=== PATIENT | female | born 1995 | race Caucasian/White ===

== ENCOUNTER 2021-02-27 22:53 | Inpatient (IN) | payer MEDICAID ==
[~2021-02-27] VITALS: Ht 157.5 cm; Wt 105.8 kg
[~2021-02-27 22:53] MED LIST: ALPR-624 PO; CARI350T PO; HYDR-4383 PO; HYDR-569 PO; IBUP-1985 PO; LORA1TAB PO; MECL12.5 PO; NALO4SPR BOTHNARES; SERT-153 PO
[2021-02-27] MEDS ORDERED: normal saline 1000ML IV soln IVB ONE (23:05)
[2021-02-27] MEDS ORDERED: naloxone 2mg/2ml inj IV ONE (23:05)
[2021-02-27] MEDS ORDERED: naloxone 2mg/2ml inj ONE (23:19)
[2021-02-27 23:34] LABS: BASOPHILS # (AUTO) 0.1 X10'3 (0-0.2); BASOPHILS % (AUTO) 0.8 % (0-1); EOSINOPHILS # (AUTO) 0.2 X10'3 (0-0.9); EOSINOPHILS % (AUTO) 2.2 % (0-6); HEMATOCRIT 35.6 % (35.0-45.0); HEMOGLOBIN 11.6 g/dl (12.0-16.0); LYMPHOCYTES # (AUTO) 3.1 X10'3 (1.1-4.8); LYMPHOCYTES % (AUTO) 37.7 % (21-51); MEAN CORPUSCULAR HEMOGLOBIN 27.8 PG (27.0-31.0); MEAN CORPUSCULAR HGB CONC 32.7 g/dL (33.0-36.5); MEAN CORPUSCULAR VOLUME 85.2 FL (78-98); MEAN PLATELET VOLUME 7.8 FL (7.4-10.4); MONOCYTES # (AUTO) 0.7 X10'3 (0-0.9); MONOCYTES % (AUTO) 8.3 % (2-12); NEUTROPHILS # (AUTO) 4.2 X10'3 (1.8-7.7); PLATELET COUNT 323 X10'3 (140-440); RED BLOOD COUNT 4.18 X10'6 (4.20-5.60); RED CELL DISTRIBUTION WIDTH 15.5 % (11.5-14.5); WHITE BLOOD COUNT 8.2 X10'3 (4.5-11.0)
[2021-02-27 23:56] LABS: ALANINE AMINOTRANSFERASE 14 U/L (12-78); ALBUMIN 3.1 G/DL (3.4-5.0); ALBUMIN/GLOBULIN RATIO 0.8 (1.1-1.5); ASPARTATE AMINO TRANSFERASE 13 U/L (10-37); BILIRUBIN,TOTAL 0.2 MG/DL (0.1-1.0); BLOOD UREA NITROGEN 13 MG/DL (7-18); BUN/CREATININE RATIO 17.3 (6.6-38.0); CALCIUM 8.3 MG/DL (8.5-10.1); CREATININE 0.75 MG/DL (0.40-0.90); ETHANOL < 0.010 GM/DL (0.0-0.010); GLUCOSE 86 MG/DL (70-104); TOTAL CARBON DIOXIDE 25.6 MMOL/L (24-32); TOTAL PROTEIN 7.2 G/DL (6.4-8.2); TROPONIN I < 0.04 NG/ML (0.0-0.05); eGFR > 90 ML/MIN
[2021-02-27 23:57] LABS: ANION GAP 8 (8-16); CHLORIDE 106 MMOL/L (99-107); POTASSIUM 4.2 MMOL/L (3.5-5.1); SODIUM 140 MMOL/L (135-145)
[2021-02-28] VITALS (14 sets, daily range): BP systolic 138–161; BP diastolic 93–113
[2021-02-28 00:02] LABS: ALKALINE PHOSPHATASE 47 IU/L (46-116)
--- NOTE | 2021-02-28 00:55 | NUR ---
REPORT TO BREAK NURSE, PT SLEEPING, RR EVEN, NON-LABORED, ON 3 LPM N/C, ALERT TO PAIN, RESPONDS WITH 2-3 WORD SENTENCES BEFORE FALLING BACK TO SLEEP, PUPILS REMAIN PINPOINT.
--- NOTE | 2021-02-28 01:00 | NUR ---
First interaction with pt. as a break nurse Pt sleeping, 96% 3L O2. Iv placed with fluid infusing.
[2021-02-28] MEDS ORDERED: naloxone 2mg/2ml inj IV STA (01:19)
--- NOTE | 2021-02-28 01:30 | NUR ---
Nalaxone given 4mg per Md order. Report given to primary RN Leanne continue care.
--- NOTE | 2021-02-28 01:35 | NUR ---
RETURNED FROM LUNCH TO FIND PT AGGITATED, MOVING AROUND BED, NOT RESPONSIVE TO VERBAL COMMANDS, ATTEMPTS TO VERBALLY CALM PT UNSUCCESSFUL, PT PULLING AT LINES, CALLED SECOND RN TO ASSIST WITH ORDERED NARCAN GTT.
[2021-02-28] MEDS ORDERED: naloxone 2mg/2ml inj 2 MG in normal saline 500ml IV soln 498 ML IV ONE (01:55)
--- NOTE | 2021-02-28 02:00 | NUR ---
SPOKE TO MD ABOUT PT CONTINUING TO MOVE DOWN BED, UNABLE TO PROTECT AIRWAY, DROOLING, MOANING. F/C PLACED TO ALLEVIATE POTENTIAL NEED FOR BATHROOM WITH SUCCESS HOWEVER PT. IS INCREASINGLY COMBATIVE. MD REQUESTS PT BE MOVED TO BED 3 FOR INTUBATION.
[2021-02-28] MEDS ORDERED: LIDOcaine 2% 10ml TOPICAL JELLY (Urojet) TP ONE ×2 (02:30→06:45)
[2021-02-28] MEDS ORDERED: etomidate 2mg/ml inj. IV ONE ×2 (02:30→02:40)
[2021-02-28] MEDS ORDERED: propofol 1000mg/100ml bottle 100 ML IV ONE ×3 (02:30→09:24)
[2021-02-28] MEDS ORDERED: rocuronium 10mg/ml inj IV ONE ×2 (02:30→14:00)
--- NOTE | 2021-02-28 02:38 | NUR ---
PT MOVED TO BED 3 FOR RSI. RESPIRATORY AT BEDSIDE, GEOVANNI DANIELS AND NIDIA. DR. REDMAN AT BEDSIDE. SIZE 8 TUBE AND MAC BLADE. CURRENT VITALS SINUS TACH, 106, BP 144/99, SPO2 98 0244 40MG ETOMIDATE HYPEROXYGENATING PT WITH BVM ON 15LPM O2 0246 100MG ROCURONIUM 0247 TUBE PLACED, BILATERAL BREATH SOUNDS, CO2 COLOR CHANGE 24 AT TEETH RESPIRATORY AT BEDSIDE WITH VENTILATOR 0248 HR 83 SINUS, BP 181/109, SPO2 95% PROPOFOL DRIP ORDERED FOR SEDATION OG TUBE PLACED CENTRAL LINE PLACED TO RIGHT OF NECK
--- NOTE | 2021-02-28 03:45 | NUR ---
PT ROLLED, BED BATH WITH NOTED BOWEL MOVEMENT. MAINTAINED ETT 25 CM AT THE GUM. LINEN CHANGED, NEW GOWN
[2021-02-28 03:53] LABS: ABG BASE EXCESS -1.8 mmol/L (-2.0-2.0); ABG HCO3 22.8 mmol/L (22.0-26.0); ABG OXYGEN SATURATION 99.2 % (94-97); ABG PCO2 (T) 38.7 mmHg (32.0-45.0); ALLEN'S TEST Modified; FMetHb 0.2 % (0.0-1.5); PEEP 5 cm H2O; RESPIRATORY RATE 18 b/min; TIDAL VOLUME 400 mL; TOTAL HEMOGLOBIN 12.6 G/dl (12.0-16.0)
--- NOTE | 2021-02-28 04:10 | NUR ---
XRAY CALLED TO BEDSIDE FOR ETT PLACEMENT CONFIRMATION. TUBE NOTED RADHA, AWARE, RT AT BEDSIDE BACKED ETT TO 21CM AT THE GUMS, CHEST XRAY TO CONFIRM PLACEMENT.
[2021-02-28 04:35] LABS: CLARITY,URINE SLIGHTLY CLOUDY (Clear); COLOR,URINE YELLOW (Yellow); UA COLLECTION TYPE FOLEY CATH
[2021-02-28 04:36] LABS: GLUCOSE, URINE NEGATIVE (Neg); KETONES,URINE NEGATIVE (Neg); LEUKOCYTE ESTERASE ,URINE NEGATIVE (Neg); NITRITES, URINE NEGATIVE (Neg); OCCULT BLOOD,URINE NEGATIVE (Neg); PROTEIN,URINE NEGATIVE (Neg); UROBILINOGEN,URINE 0.2 E.U/dL (0.2-1.0)
[2021-02-28 04:45] LABS: URINE AMPHETAMINE SCREEN POSITIVE (Neg); URINE BARBITUATE SCREEN NEGATIVE (Neg); URINE BENZODIAZEPINES SCREEN POSITIVE (Neg); URINE CANNABINOID SCREEN NEGATIVE (Neg); URINE COCAINE SCREEN NEGATIVE (Neg); URINE METHADONE SCREEN NEGATIVE (Neg); URINE OPIATE SCREEN POSITIVE (Neg); URINE PHENCYCLIDINE SCREEN NEGATIVE (Neg)
[2021-02-28 04:46] LABS: BACTERIA,URINE NONE SEEN /HPF (Neg); RBC,URINE NONE SEEN /HPF (0-2); SQUAMOUS EPITHELIAL CELL,UR FEW /LPF (FEW); WBC,URINE 0-4 /HPF (0-4)
[2021-02-28 04:47] LABS: MUCUS STRANDS FEW /LPF (Neg)
[2021-02-28] MEDS ORDERED: MIDAZolam 5mg/ml 2ml vial IV ONE (05:20)
--- NOTE | 2021-02-28 05:22 | NUR ---
SPOKE TO , HE REQUESTS THAT PT BE MAXED ON PROPOFOL BEFORE SECONDARY SEDATION IS STARTED. HE IS AWARE OF BP TRENDS AND 'S VERSED ORDER. MD REQUESTING VERSED BE USED AFTER PROPOFOL IS NO LONGER EFFECTIVE.
--- NOTE | 2021-02-28 05:29 | NUR ---
PT'S MOUTH SUCTIONED, + COUGH REFLEX WITH PURPOSFUL MOVEMENT, GRABBING TOWARDS ETT, SOFT RESTRAINTS REMAIN IN PLACE ON UE'S WITH +CSM'S.
[2021-02-28] MEDS ORDERED: famotidine/PF 10 mg/ml inj IV ONE (06:30)
[2021-02-28] MEDS ORDERED: potassium Cl 20 mEq SR tablet PO PRN (06:45)
[2021-02-28] MEDS ORDERED: acetaminophen 325mg tablet PO PRN ×2 (06:45)
[2021-02-28] MEDS ORDERED: dextrose ORAL solution 15 GM/59 ML bottle PO PRN ×2 (06:45)
[2021-02-28] MEDS ORDERED: dextrose 50%-water 50ml dispensing syringe IV PRN ×2 (06:45)
[2021-02-28] MEDS ORDERED: glucagon, human recombinant 1mg kit SUBCUT PRN (06:45)
[2021-02-28] MEDS ORDERED: MESSAGE TO PHARMACY PO ONE (06:45)
[2021-02-28] MEDS ORDERED: magnesium hydroxide 30ml (MOM) UD suspension PO PRN (06:45)
[2021-02-28] MEDS ORDERED: ondansetron/PF 4mg/2ml inj IV PRN (06:45)
[2021-02-28] MEDS ORDERED: insulin Lispro (HumaLOG) vial - multi-dose SQ SCH (06:45)
[2021-02-28] MEDS ORDERED: famotidine/PF 10 mg/ml inj IV SCH (08:00)
--- NOTE | 2021-02-28 08:09 | NUR ---
Observed pt sit up in bed, and grab ET tube. Ran to bedside and was able to restrain pt from pulling tube. At this time, noticed VTBI on propofol was at zero. Reset VTBI, bolused pt 5mL of propofol, and reset pt's pump.
[2021-02-28] MEDS: K, MAG and/or Phos replacement - Verify level? MC SCH (10:00)
[2021-02-28] MEDS: normal saline 1000ml 1,000 ML IV SCH ×4 (10:54→20:05)
[2021-02-28 10:55] LABS: GASTRIC OCCULT BLOOD POSITIVE (Neg)
--- NOTE | 2021-02-28 11:09 | NUR ---
Patient in room CICU 2008. I have received report from ROOSEVELT SERRANO and had the opportunity to ask questions and assume patient care.
[2021-02-28] MEDS: heparin, porcine 5000 units/ml vial SQ SCH ×2 (11:14→16:30)
[2021-02-28] MEDS: pantoprazole 40 MG vial IV SCH (11:14)
--- NOTE | 2021-02-28 11:18 | NUR ---
0945 RECEIVED PT FROM ED MAGGIE RAMIRES IN STABLE CONDITION. PT HOOKED UP TO THE MONITOR, VENT SET UP, PT ASSESSED, ON PROPOFOL. NEW ORDERS FROM DR JAMES.
[2021-02-28 11:56] LABS: ABG BASE EXCESS 1.5 mmol/L (-2.0-2.0); ABG HCO3 25.2 mmol/L (22.0-26.0); ABG OXYGEN SATURATION 96.5 % (94-97); ABG PCO2 (T) 36.2 mmHg (32.0-45.0); ABG PO2 (T) 84.9 mmHg (75.0-100.0); FMetHb 0.2 % (0.0-1.5); FO2Hb 96.3 % (94-97); PEEP 5 cm H2O; RESPIRATORY RATE 18 b/min; TIDAL VOLUME 400 mL
[2021-02-28] MEDS ORDERED: NO HOME MEDS (12:09)
--- NOTE | 2021-02-28 12:31 | NUR ---
Initial: Pt intubated admit DX meth, opiates, and benzodiazepine OD per EMR. OG in place w/ MAP 110 during rounds. TF recs below in case prolonged intubation. Hopes of extubation once OD resolves and respiratory status ensured per acid retort operator. Pt currently receiving propofol at 33.3ml/hr providing 879 kcals/day; TF recs below adjusted for propofol provisions. No edema and skin intact per EMR. Will continue to monitor. Rec: 1. IF pt remains on propofol at 33.3ml/hr and to start TF; Vital High Protein at 28ml/hr to avoid overfeeding on vent 2. IF propofol weaned and TF to start; Vital High Protein at 65ml/hr goal 2. IF TF; additional water flush 100ml Q4H 3. IF TF; PALB Q /; daily wts 4. routine bowel care 5. upon extubation; advance diet as medically indicated to heart healthy Addendum: 02/28/21 at [address] Amended: Links added.
[2021-02-28] MEDS: propofol 1000mg/100ml bottle 100 ML IV SCH ×4 (13:04→20:05)
[2021-02-28] MEDS ORDERED: etomidate 2mg/ml inj. ONE (14:00)
--- NOTE | 2021-02-28 18:26 | NUR ---
Problems reprioritized. Patient report given, questions answered & plan of care reviewed with Rika SERRANO.
--- NOTE | 2021-02-28 18:30 | NUR ---
Problems reprioritized. Patient report given, questions answered & plan of care reviewed with Zan SERRANO. Addendum: 02/28/21 at 1857 by Darlene Gore RN Amended: Links added.
[2021-02-28] MEDS: insulin glargine (Lantus) pen - multi-dose SQ SCH (21:00)
[2021-02-28] MEDS: morphine 4 MG/ML inj SYRINge IV PRN (21:03)
--- NOTE | 2021-02-28 22:19 | NUR ---
Patient awakens quickly, restless, attempts to cough out tube. titrating sedation for patient comfort and synchrony with the ventilator.
[2021-03-01] VITALS (18 sets, daily range): BP systolic 125–165; BP diastolic 75–109
[2021-03-01] MEDS: heparin, porcine 5000 units/ml vial SQ SCH ×2 (00:29→09:32)
[2021-03-01] MEDS: propofol 1000mg/100ml bottle 100 ML IV SCH ×4 (00:34→09:31)
[2021-03-01] MEDS: normal saline 1000ml 1,000 ML IV SCH ×5 (02:51→22:00)
[2021-03-01] MEDS: morphine 4 MG/ML inj SYRINge IV PRN (02:51)
[2021-03-01 03:20] LABS: BASOPHILS % (AUTO) 0.1 % (0-1); EOSINOPHILS % (AUTO) 0 % (0-6); HEMATOCRIT 26.2 % (35.0-45.0); HEMOGLOBIN 8.2 g/dl (12.0-16.0); LYMPHOCYTES # (AUTO) 0.7 X10'3 (1.1-4.8); LYMPHOCYTES % (AUTO) 4.2 % (21-51); MEAN CORPUSCULAR HGB CONC 31.2 g/dL (33.0-36.5); MEAN CORPUSCULAR VOLUME 83.5 FL (78-98); MEAN PLATELET VOLUME 7.7 FL (7.4-10.4); MONOCYTES # (AUTO) 0.8 X10'3 (0-0.9); MONOCYTES % (AUTO) 4.4 % (2-12); NEUTROPHILS % (AUTO) 91.3 % (42-75); PLATELET COUNT 234 X10'3 (140-440); RED BLOOD COUNT 3.14 X10'6 (4.20-5.60); RED CELL DISTRIBUTION WIDTH 16.9 % (11.5-14.5); WHITE BLOOD COUNT 17.5 X10'3 (4.5-11.0)
[2021-03-01 03:34] LABS: ABG BASE EXCESS -1.1 mmol/L (-2.0-2.0); ABG HCO3 22.8 mmol/L (22.0-26.0); ABG OXYGEN SATURATION 92.9 % (94-97); ABG PCO2 (T) 33.9 mmHg (32.0-45.0); ABG PO2 (T) 63.4 mmHg (75.0-100.0); ALLEN'S TEST POSITIVE; FCOHb 0.1 % (0.0-3.9); FMetHb 0.1 % (0.0-1.5); FO2Hb 92.7 % (94-97); PATIENT TEMPERATURE 36.2; PEEP 5 cm H2O; RESPIRATORY RATE 18 b/min; TIDAL VOLUME 400 mL; TOTAL HEMOGLOBIN 11.6 G/dl (12.0-16.0)
[2021-03-01 03:37] LABS: ALBUMIN 2.2 G/DL (3.4-5.0); ANION GAP 11 (8-16); BLOOD UREA NITROGEN 12 MG/DL (7-18); BUN/CREATININE RATIO 20.3 (6.6-38.0); CALCIUM 7.7 MG/DL (8.5-10.1); CHLORIDE 111 MMOL/L (99-107); CREATININE 0.59 MG/DL (0.40-0.90); GLUCOSE 98 MG/DL (70-104); MAGNESIUM 1.5 MG/DL (1.5-2.4); PHOSPHORUS 3.1 MG/DL (2.3-4.5); POTASSIUM 4.3 MMOL/L (3.5-5.1); SODIUM 140 MMOL/L (135-145); eGFR > 90 ML/MIN
[2021-03-01] MEDS: dexmedetomidin/NS 400mcg/100ml 100 ML IV PRN ×2 (05:10→09:33)
--- NOTE | 2021-03-01 06:14 | NUR ---
0445: Dr. Phillips updated, orders received to start Precedex for agitation. 0614:Problems reprioritized. Patient report given, questions answered & plan of care reviewed with Zan SERRANO.
[2021-03-01] MEDS: K, MAG and/or Phos replacement - Verify level? MC SCH (09:29)
[2021-03-01] MEDS: pantoprazole 40 MG vial IV SCH (09:31)
--- NOTE | 2021-03-01 10:28 | NUR ---
SUCTIONED PATIENT, BS BEFORE SL COARSE EXP. POST GOT BACK LAVAGE AND SCANT AMOUNT OF CLEAR SL YELLOW, BS POST CLEAR Addendum: 03/01/21 at 1030 by Valentino Roach RT Amended: Links added.
[2021-03-01] MEDS ORDERED: fentaNYL/PF 50MCG/1 ML 2ML syringe ONE (11:00)
[2021-03-01] MEDS ORDERED: MIDAZolam 1 MG/ML 5ML VIAL ONE (11:00)
[2021-03-01] MEDS ORDERED: LIDOcaine Viscous 15ml cup ONE (11:00)
[2021-03-01] MEDS: pantoprazole 40MG/NS 100ML BAG 100 ML IV SCH ×3 (11:48→19:48)
--- NOTE | 2021-03-01 14:03 | NUR ---
DM Consult: Pt sumaya hx DM w/ A1C 5.6; not appropriate for education. Addendum: 03/01/21 at [address] Amended: Links added.
--- NOTE | 2021-03-01 14:39 | NUR ---
MRSA nasal swab positive. Pt with known HX of MRSA positive.
--- NOTE | 2021-03-01 16:42 | NUR ---
Patient in room CICU 2008. I have received report from MAGGIE Zuluaga and had the opportunity to ask questions and assume patient care.
--- NOTE | 2021-03-01 17:40 | NUR ---
RIght groin femoral CL removed, pressure held for 5 minutes, dressing applied. Hernadnez catheter removed. Pt placed on tele, wheelchaired to PCU with chart, IVPB, belongings, on 2L N/C O2. Report given to Jennifer SERRANO. Pt transferred to bed. Protonix gtt extra bags placed in Omni.
--- NOTE | 2021-03-01 18:36 | NUR ---
Problems reprioritized. Patient report given, questions answered & plan of care reviewed with MAGGIE Garcia.
--- NOTE | 2021-03-01 18:54 | NUR ---
Patient in room PCU 3014. I have received report from MAGGIE Rodriguez and had the opportunity to ask questions and assume patient care.
[2021-03-01] MEDS: insulin glargine (Lantus) pen - multi-dose SQ SCH (21:00)
[2021-03-01 21:23] LABS: PARTIAL THROMBOPLASTIN TIME 29 SECONDS (22-32)
[2021-03-02] MEDS: pantoprazole 40MG/NS 100ML BAG 100 ML IV SCH ×4 (00:16→16:00)
[2021-03-02] MEDS: normal saline 1000ml 1,000 ML IV SCH ×2 (00:19→13:27)
[2021-03-02 02:00] VITALS: BP 127/78
[2021-03-02] MEDS: morphine 2 MG/ML inj. syringe IV PRN ×3 (02:05→13:23)
[2021-03-02 06:00] VITALS: BP 130/81
--- NOTE | 2021-03-02 06:10 | NUR ---
Problems reprioritized. Patient report given, questions answered & plan of care reviewed with MAGGIE Rodriguez.
--- NOTE | 2021-03-02 06:12 | NUR ---
Patient in room PCU 3014. I have received report from MAGGIE Garcia and had the opportunity to ask questions and assume patient care.
[2021-03-02 06:44] LABS: BASOPHILS % (AUTO) 0.5 % (0-1); EOSINOPHILS # (AUTO) 0.2 X10'3 (0-0.9); EOSINOPHILS % (AUTO) 2.5 % (0-6); HEMATOCRIT 30.9 % (35.0-45.0); HEMOGLOBIN 10.2 g/dl (12.0-16.0); LYMPHOCYTES # (AUTO) 2.4 X10'3 (1.1-4.8); LYMPHOCYTES % (AUTO) 25.3 % (21-51); MEAN CORPUSCULAR HEMOGLOBIN 27.9 PG (27.0-31.0); MEAN CORPUSCULAR HGB CONC 32.9 g/dL (33.0-36.5); MEAN CORPUSCULAR VOLUME 85.1 FL (78-98); MEAN PLATELET VOLUME 7.8 FL (7.4-10.4); MONOCYTES # (AUTO) 0.7 X10'3 (0-0.9); MONOCYTES % (AUTO) 7.8 % (2-12); NEUTROPHILS % (AUTO) 63.9 % (42-75); PLATELET COUNT 276 X10'3 (140-440); RED BLOOD COUNT 3.63 X10'6 (4.20-5.60); RED CELL DISTRIBUTION WIDTH 15.9 % (11.5-14.5); WHITE BLOOD COUNT 9.5 X10'3 (4.5-11.0)
[2021-03-02 06:54] LABS: ALBUMIN 2.5 G/DL (3.4-5.0); ANION GAP 10 (8-16); BLOOD UREA NITROGEN 5 MG/DL (7-18); BUN/CREATININE RATIO 8.6 (6.6-38.0); CALCIUM 7.4 MG/DL (8.5-10.1); CHLORIDE 110 MMOL/L (99-107); CREATININE 0.58 MG/DL (0.40-0.90); GLUCOSE 86 MG/DL (70-104); MAGNESIUM 1.6 MG/DL (1.5-2.4); PHOSPHORUS 2.8 MG/DL (2.3-4.5); SODIUM 143 MMOL/L (135-145); TOTAL CARBON DIOXIDE 23.2 MMOL/L (24-32); eGFR > 90 ML/MIN
[2021-03-02 06:56] LABS: POTASSIUM 2.9 MMOL/L (3.5-5.1)
--- NOTE | 2021-03-02 06:59 | NUR ---
Notified Dr Nolan of low serum K+: PAGER ID: [phone] MESSAGE: Nicola Lantigua 3014A K+ is 2.9. initiating replacement protocol. Jennifer [phone]
[2021-03-02] MEDS: K, MAG and/or Phos replacement - Verify level? MC SCH (07:28)
[2021-03-02] MEDS: potassium Cl 20 mEq SR tablet PO PRN ×2 (07:28→13:22)
--- NOTE | 2021-03-02 07:36 | NUR ---
Notified of hospitalist change to Dr. Neely. Notified Dr. Neely of low serum K+: PAGER ID: [phone] MESSAGE: Nicola Lantigua [id number] K+ is 2.9. Replacement in process. Jennifer [phone].
--- NOTE | 2021-03-02 15:33 | NUR ---
Notified Dr Neely of latest serum potassium level: PAGER ID: [phone] MESSAGE: RODRIGO Morales T 3014A 1500 K+ is 3.3. would you like more K+? Jennifer [phone]
[2021-03-02] MEDS ORDERED: POTA10TA36 PO (15:50)
[2021-03-02] MEDS ORDERED: OMEP20CA15 PO (15:51)
[2021-03-02] MEDS ORDERED: potassium Cl 20 mEq SR tablet PO ONE (16:10)
--- NOTE | 2021-03-02 18:16 | NUR ---
Patient stable for discharge per MD orders. PIV discontinued intact. All telemetry equipment removed and returned to telemetry office. All discharge instructions reviewed with patient and family. All questions answered to patient satisfaction. Patient expressed understanding of instructions. Patient assisted into wheelchair and taken to the front of the building where she departed in an uber
== END 2021-03-02 17:19 | disposition home or self-care (01) | DRG 816 ==
LOC: ER 22:54 → ED HOLD 02-28 06:43 → CICU 2S 02-28 09:45 → PCU 3S 03-01 17:22
PROVIDERS: ADMIT Internal Medicine Critical Care Medicine; ATTEND Internal Medicine Critical Care Medicine
PROC: 5A1945Z Respiratory Ventilation, 24-96 Consecutive Hours (ICD-10-PCS; 2021-02-28)
PROC: 0BH17EZ Insertion of Endotracheal Airway into Trachea, Via Natural or Artificial Opening (ICD-10-PCS; 2021-02-28)
PROC: 0DJ08ZZ Inspection of Upper Intestinal Tract, Via Natural or Artificial Opening Endoscopic (ICD-10-PCS; principal; 2021-03-01)
DX: T40.1X1A Poisoning by heroin, accidental (unintentional), initial encounter (principal); J96.00 Acute respiratory failure, unspecified whether with hypoxia or hypercapnia; T42.4X1A Poisoning by benzodiazepines, accidental (unintentional), initial encounter; K29.71 Gastritis, unspecified, with bleeding; F19.10 Other psychoactive substance abuse, uncomplicated; E66.01 Morbid (severe) obesity due to excess calories; Z68.41 Body mass index [BMI] 40.0-44.9, adult
CPT/HCPCS: 31500; 36415; 36556; 36600; 43235; 70450; 71045; 80048; 80053; 80305; 80320; 80329; 81001; 82140; 82271; 82803; 82948; 83036; 83605; 83735; 84100; 84132; 84484; 85018; 85025; 85610; 85730; 86885; 86900; 86901; 87040; 87081; 93005; 94002; 94003; 94760; 94799; 99291; C9113; G0378; J1644; J1815; J2250; J2270; J2310; J2704; J3010; J7030

== ENCOUNTER 2024-08-14 17:14 | Inpatient (IN) | payer MEDICAID, OTHER ==
[~2024-08-14] VITALS: Ht 170.2 cm; Wt 111.8 kg
[~2024-08-14 17:14] MED LIST changes: -ALPR-624 PO; -CARI350T PO; -HYDR-4383 PO; -HYDR-569 PO; -IBUP-1985 PO; -LORA1TAB PO; -MECL12.5 PO; -NALO4SPR BOTHNARES; +OMEP20CA15 PO; +POTA-206 PO; -SERT-153 PO; +magnesium sulf 1 GM/2 ML ONE
[2024-08-14 17:40] VITALS: BP 194/120; PULSE 102; RESP 18
[2024-08-14] MEDS: propofol 1000mg/100ml bottle 100 ML IV ONE ×2 (17:51→22:14)
[2024-08-14 17:52] LABS: BASOPHILS # (AUTO) 0.1 X10'3 (0-0.2); BASOPHILS % (AUTO) 0.2 % (0-1); EOSINOPHILS # (AUTO) 0.6 X10'3 (0-0.9); EOSINOPHILS % (AUTO) 2.2 % (0-6); HEMATOCRIT 39.3 % (35.0-45.0); HEMOGLOBIN 12.1 g/dl (12.0-16.0); LYMPHOCYTES # (AUTO) 9.2 X10'3 (1.1-4.8); LYMPHOCYTES % (AUTO) 36.5 % (21-51); MEAN CORPUSCULAR HEMOGLOBIN 28.9 PG (27.0-31.0); MEAN CORPUSCULAR HGB CONC 30.7 g/dL (33.0-36.5); MEAN CORPUSCULAR VOLUME 94.3 FL (78-98); MEAN PLATELET VOLUME 8.7 FL (7.4-10.4); MONOCYTES # (AUTO) 1.3 X10'3 (0-0.9); NEUTROPHILS # (AUTO) 14.1 X10'3 (1.8-7.7); NEUTROPHILS % (AUTO) 56.1 % (42-75); PLATELET COUNT 293 X10'3 (140-440); RED BLOOD COUNT 4.17 X10'6 (4.20-5.60); RED CELL DISTRIBUTION WIDTH 15.8 % (11.5-14.5)
[2024-08-14] MEDS: amiodarone/D5 360MG/200ML BAG 200 ML IV SCH (17:53)
[2024-08-14 17:55] LABS: WHITE BLOOD COUNT 25.2 X10'3 (4.5-11.0)
[2024-08-14 17:57] LABS: APTT 26 SECONDS (22-32); INR 1.1 INR; PROTHROMBIN TIME 11.2 SECONDS (9.0-12.0)
[2024-08-14 17:59] LABS: ALANINE AMINOTRANSFERASE 63 U/L (12-78); ALBUMIN 2.6 G/DL (3.4-5.0); ALBUMIN/GLOBULIN RATIO 0.7 (1.1-1.5); ALKALINE PHOSPHATASE 67 IU/L (46-116); ANION GAP 17 (8-16); BILIRUBIN,TOTAL 0.3 MG/DL (0.1-1.0); BLOOD UREA NITROGEN 7 MG/DL (7-18); BUN/CREATININE RATIO 6.3 (10.0-20.0); CHLORIDE 104 MMOL/L (99-107); CREATININE 1.12 MG/DL (0.40-0.90); GLUCOSE 365 MG/DL (70-104); SODIUM 139 MMOL/L (135-145); TOTAL CARBON DIOXIDE 18.5 MMOL/L (24-32); TOTAL PROTEIN 6.2 G/DL (6.4-8.2); eCRCL 72 ML/MIN; eGFR 58 ML/MIN
[2024-08-14 18:09] LABS: MAGNESIUM 2.5 MG/DL (1.5-2.4); THYROID STIMULATING HORMONE 2.65 ulU/ml (0.34-4.50)
[2024-08-14 18:11] LABS: ASPARTATE AMINO TRANSFERASE 68 U/L (10-37); ETHANOL < 10 MG/DL (<10); POTASSIUM 4.6 MMOL/L (3.5-5.1)
[2024-08-14] MEDS: sodium bicarbonate (8.4%) 1 mEq/ml syringe IV ONE (18:13)
[2024-08-14 18:28] LABS: PLATELET ESTIMATE NORMAL; SMUDGE CELLS 1+; TOTAL CELLS COUNTED 100
[2024-08-14 19:10] LABS: BILIRUBIN,URINE NEGATIVE (Neg); CLARITY,URINE CLEAR (Clear); COLOR,URINE YELLOW (Yellow); GLUCOSE, URINE >=1000 mg/dl (Neg); KETONES,URINE NEGATIVE (Neg); LEUKOCYTE ESTERASE ,URINE NEGATIVE (Neg); NITRITES, URINE NEGATIVE (Neg); OCCULT BLOOD,URINE SMALL (Neg); PROTEIN,URINE 100 mg/dl (Neg); UROBILINOGEN,URINE 0.2 E.U/dL (0.2-1.0)
[2024-08-14 19:11] LABS: URINE HCG NEGATIVE (NEG)
[2024-08-14 19:22] LABS: URINE AMPHETAMINE SCREEN NEGATIVE (Neg); URINE BARBITUATE SCREEN NEGATIVE (Neg); URINE BENZODIAZEPINES SCREEN NEGATIVE (Neg); URINE CANNABINOID SCREEN NEGATIVE (Neg); URINE COCAINE SCREEN NEGATIVE (Neg); URINE METHADONE SCREEN POSITIVE (Neg); URINE OPIATE SCREEN NEGATIVE (Neg); URINE PHENCYCLIDINE SCREEN NEGATIVE (Neg)
[2024-08-14 19:29] VITALS: BP 174/115; PULSE 124; RESP 38; O2SAT 80
[2024-08-14 19:30] LABS: UA COLLECTION TYPE NON-SPECIFIED
[2024-08-14 19:31] LABS: BACTERIA,URINE 1+ /HPF (Neg); SQUAMOUS EPITHELIAL CELL,UR FEW /LPF (FEW)
[2024-08-14 20:01] LABS: ABG BASE EXCESS -5.5 mmol/L (-2.0-3.0); ABG HCO3 20.1 mmol/L (21.0-28.0); ABG OXYGEN SATURATION 87.5 % (94.0-98.0); ABG PCO2 (T) 40.7 mmHg (32.0-45.0); ABG PH (T) 7.314 (7.350-7.450); ABG PO2 (T) 56.5 mmHg (83.0-108.0); FCOHb 0.4 % (0.5-1.5); FHHb 12.4 % (0.0-5.0); FMetHb 0.3 % (0.0-1.5); FO2Hb 86.9 % (94.0-98.0); MODE ac/prvc; PATIENT TEMPERATURE 37.5; PEEP 12 cm H2O; RESPIRATORY RATE 26 b/min; TIDAL VOLUME 350 mL; TOTAL HEMOGLOBIN 14.8 G/dl (12.0-16.0)
[2024-08-14] MEDS: normal saline 1000ml 1,000 ML IV SCH (20:56)
[2024-08-14] MEDS: insulin regular, human 10 units/0.1 ml syringe IV ONE (21:00)
[2024-08-14 21:12] VITALS: BP 130/91; PULSE 11; PULSE 111; RESP 35; O2SAT 78
[2024-08-14 23:07] VITALS: BP 130/91; PULSE 103; RESP 56
[2024-08-14] MEDS: piperacillin/tazo 3.375gm/50ml 50 ML IV SCH (23:41)
[2024-08-15] VITALS (12 sets, daily range): BP systolic 108–151; BP diastolic 78–111; PULSE 66–96; RESP 24–27; O2SAT 92–96
[2024-08-15] MEDS ORDERED: dextrose 50%-water 50ml dispensing syringe IV ONE (00:30)
[2024-08-15] MEDS ORDERED: propofol 1000mg/100ml bottle 100 ML IV SCH ×2 (00:40→12:15)
[2024-08-15] MEDS: propofol 1000mg/100ml bottle 100 ML IV ONE (02:06)
[2024-08-15] MEDS ORDERED: FLUT1BLS10 INH (03:28)
[2024-08-15] MEDS ORDERED: ALBU10.7 (03:28)
[2024-08-15] MEDS ORDERED: LEVA15HF6 PO (03:28)
[2024-08-15 03:32] LABS: ABG BASE EXCESS -6.9 mmol/L (-2.0-3.0); ABG OXYGEN SATURATION 98.4 % (94.0-98.0); ABG PCO2 (T) 39.3 mmHg (32.0-45.0); ABG PH (T) 7.301 (7.350-7.450); ABG PO2 (T) 112.6 mmHg (83.0-108.0); FCOHb 0.4 % (0.5-1.5); FHHb 1.6 % (0.0-5.0); FMetHb 0.3 % (0.0-1.5); FO2Hb 97.7 % (94.0-98.0); MODE ac/prvc; PATIENT TEMPERATURE 36.7; PEEP 12 cm H2O; RESPIRATORY RATE 26 b/min; TIDAL VOLUME 350 mL; TOTAL HEMOGLOBIN 15.3 G/dl (12.0-16.0)
[2024-08-15] MEDS: NORepinephrine 8mg/ 250ml NS 250 ML IV PRN (03:56)
[2024-08-15 04:22] LABS: BASOPHILS % (AUTO) 0.1 % (0-1); EOSINOPHILS % (AUTO) 0.1 % (0-6); HEMATOCRIT 46.2 % (35.0-45.0); HEMOGLOBIN 14.9 g/dl (12.0-16.0); LYMPHOCYTES # (AUTO) 2.7 X10'3 (1.1-4.8); LYMPHOCYTES % (AUTO) 8.8 % (21-51); MEAN CORPUSCULAR HGB CONC 32.3 g/dL (33.0-36.5); MEAN CORPUSCULAR VOLUME 89.6 FL (78-98); MEAN PLATELET VOLUME 8.1 FL (7.4-10.4); MONOCYTES # (AUTO) 2.5 X10'3 (0-0.9); MONOCYTES % (AUTO) 8.2 % (2-12); NEUTROPHILS # (AUTO) 25.4 X10'3 (1.8-7.7); NEUTROPHILS % (AUTO) 82.8 % (42-75); PLATELET COUNT 359 X10'3 (140-440); RED BLOOD COUNT 5.15 X10'6 (4.20-5.60); RED CELL DISTRIBUTION WIDTH 15.7 % (11.5-14.5)
[2024-08-15 04:29] LABS: WHITE BLOOD COUNT 30.8 X10'3 (4.5-11.0)
[2024-08-15 04:41] LABS: ALANINE AMINOTRANSFERASE 68 U/L (12-78); ALBUMIN 3.1 G/DL (3.4-5.0); ALBUMIN/GLOBULIN RATIO 0.7 (1.1-1.5); ALKALINE PHOSPHATASE 73 IU/L (46-116); ANION GAP 10 (8-16); ASPARTATE AMINO TRANSFERASE 82 U/L (10-37); BILIRUBIN,TOTAL 0.4 MG/DL (0.1-1.0); BLOOD UREA NITROGEN 17 MG/DL (7-18); BUN/CREATININE RATIO 14.9 (10.0-20.0); CALCIUM 8.5 MG/DL (8.5-10.1); CHLORIDE 105 MMOL/L (99-107); CREATININE 1.14 MG/DL (0.40-0.90); GLUCOSE 126 MG/DL (70-104); POTASSIUM 4.9 MMOL/L (3.5-5.1); SODIUM 141 MMOL/L (135-145); TOTAL CARBON DIOXIDE 26.1 MMOL/L (24-32); TOTAL PROTEIN 7.3 G/DL (6.4-8.2); eCRCL 71 ML/MIN; eGFR 56 ML/MIN
[2024-08-15 04:48] LABS: TOTAL CELLS COUNTED 100
[2024-08-15 04:49] LABS: PLATELET ESTIMATE NORMAL; STOMATOCYTES 3+
[2024-08-15] MEDS: VANCOMYCIN 1,500MG inj. 1,500 MG in normal saline 500ml IV soln 300 ML IV ONE (05:23)
[2024-08-15] MEDS ORDERED: rocuronium 10mg/ml inj IV ONE (08:00)
[2024-08-15] MEDS: enoxaparin 40mg/0.4ml syringe SUBCUT SCH (08:22)
[2024-08-15] MEDS ORDERED: FENTANYL-0.9 % NACL/PF 100 ML IV SCH (12:15)
[2024-08-15] MEDS: propofol 1000mg/100ml bottle 100 ML IV SCH (12:29)
[2024-08-15] MEDS: FENTANYL-0.9 % NACL/PF 100 ML IV SCH (12:45)
[2024-08-15] MEDS: CISatracurium besylate inj. 100 MG in normal saline 100ml IV soln 90 ML IV PRN (15:55)
[2024-08-15] MEDS: mineral oil/petrolatum ophthal oint EACHEYE SCH ×2 (16:03→20:53)
[2024-08-15 17:39] LABS: ABG BASE EXCESS -6.2 mmol/L (-2.0-3.0); ABG HCO3 18.9 mmol/L (21.0-28.0); ABG OXYGEN SATURATION 96.1 % (94.0-98.0); ABG PCO2 (T) 32.5 mmHg (32.0-45.0); ABG PO2 (T) 72.5 mmHg (83.0-108.0); FCOHb 0.1 % (0.5-1.5); FHHb 3.9 % (0.0-5.0); FMetHb 0.3 % (0.0-1.5); FO2Hb 95.7 % (94.0-98.0); MODE VENT - AC; PATIENT TEMPERATURE 34.6; PEEP 12 cm H2O; RESPIRATORY RATE 26 b/min; TIDAL VOLUME 350 mL; TOTAL HEMOGLOBIN 15.1 G/dl (12.0-16.0)
[2024-08-15 18:17] LABS: ALBUMIN 2.8 G/DL (3.4-5.0); ANION GAP 13 (8-16); BLOOD UREA NITROGEN 21 MG/DL (7-18); BUN/CREATININE RATIO 26.6 (10.0-20.0); CALCIUM 8.4 MG/DL (8.5-10.1); CHLORIDE 104 MMOL/L (99-107); CREATININE 0.79 MG/DL (0.40-0.90); GLUCOSE 104 MG/DL (70-104); MAGNESIUM 2.1 MG/DL (1.5-2.4); SODIUM 140 MMOL/L (135-145); eCRCL 102 ML/MIN; eGFR 86 ML/MIN
[2024-08-15 18:18] LABS: CREATINE KINASE 1177 U/L (26-192)
[2024-08-15] MEDS: vancomycin/NS 1 GM ADD-VANTAGE 250 ML IV SCH (22:10)
[2024-08-16] VITALS (20 sets, daily range): BP systolic 106–154; BP diastolic 58–100; PULSE 103–126; RESP 8–32; O2SAT 88–98
[2024-08-16 00:24] LABS: ALBUMIN 2.7 G/DL (3.4-5.0); ANION GAP 10 (8-16); BLOOD UREA NITROGEN 20 MG/DL (7-18); CALCIUM 8.3 MG/DL (8.5-10.1); CHLORIDE 107 MMOL/L (99-107); CREATININE 0.77 MG/DL (0.40-0.90); GLUCOSE 97 MG/DL (70-104); MAGNESIUM 1.8 MG/DL (1.5-2.4); POTASSIUM 3.7 MMOL/L (3.5-5.1); SODIUM 141 MMOL/L (135-145); TOTAL CARBON DIOXIDE 24.5 MMOL/L (24-32); eCRCL 105 ML/MIN; eGFR 89 ML/MIN
[2024-08-16] MEDS: dextrose 50%-water 50ml dispensing syringe IV ONE (01:07)
[2024-08-16] MEDS ORDERED: magnesium sulf-water 2g/50mL 50 ML IV ONE ×2 (01:40)
[2024-08-16] MEDS: dextrose 5%-normal saline 1,000 ML IV SCH (02:18)
[2024-08-16] MEDS: magnesium sulf 1 GM/2 ML IV ONE (02:40)
[2024-08-16 02:51] LABS: BASOPHILS % (AUTO) 0.1 % (0-1); EOSINOPHILS % (AUTO) 0.2 % (0-6); HEMATOCRIT 42.7 % (35.0-45.0); HEMOGLOBIN 13.9 g/dl (12.0-16.0); LYMPHOCYTES # (AUTO) 1.3 X10'3 (1.1-4.8); LYMPHOCYTES % (AUTO) 5.8 % (21-51); MEAN CORPUSCULAR HEMOGLOBIN 29.2 PG (27.0-31.0); MEAN CORPUSCULAR HGB CONC 32.6 g/dL (33.0-36.5); MEAN CORPUSCULAR VOLUME 89.6 FL (78-98); MEAN PLATELET VOLUME 9.5 FL (7.4-10.4); MONOCYTES # (AUTO) 0.9 X10'3 (0-0.9); NEUTROPHILS # (AUTO) 20.4 X10'3 (1.8-7.7); NEUTROPHILS % (AUTO) 89.9 % (42-75); PLATELET COUNT 290 X10'3 (140-440); RED BLOOD COUNT 4.76 X10'6 (4.20-5.60); RED CELL DISTRIBUTION WIDTH 16.1 % (11.5-14.5); WHITE BLOOD COUNT 22.6 X10'3 (4.5-11.0)
[2024-08-16 03:19] LABS: ALANINE AMINOTRANSFERASE 58 U/L (12-78); ALBUMIN 2.8 G/DL (3.4-5.0); ALBUMIN/GLOBULIN RATIO 0.7 (1.1-1.5); ALKALINE PHOSPHATASE 70 IU/L (46-116); ANION GAP 13 (8-16); ASPARTATE AMINO TRANSFERASE 67 U/L (10-37); BILIRUBIN,TOTAL 0.5 MG/DL (0.1-1.0); BLOOD UREA NITROGEN 19 MG/DL (7-18); BUN/CREATININE RATIO 21.8 (10.0-20.0); CALCIUM 8.7 MG/DL (8.5-10.1); CHLORIDE 105 MMOL/L (99-107); CREATININE 0.87 MG/DL (0.40-0.90); GLUCOSE 123 MG/DL (70-104); MAGNESIUM 2.8 MG/DL (1.5-2.4); POTASSIUM 3.8 MMOL/L (3.5-5.1); SODIUM 141 MMOL/L (135-145); TOTAL CARBON DIOXIDE 23.5 MMOL/L (24-32); TOTAL PROTEIN 7.1 G/DL (6.4-8.2); TRIGLYCERIDES 164 MG/DL (20-135); eCRCL 93 ML/MIN; eGFR 77 ML/MIN
[2024-08-16] MEDS: ringers solution, lacted 1,000 ML IV ONE ×2 (09:25→12:43)
[2024-08-16] MEDS ORDERED: METH10OR PO (10:03)
[2024-08-16 12:22] LABS: ALBUMIN 2.3 G/DL (3.4-5.0); ANION GAP 7 (8-16); BLOOD UREA NITROGEN 16 MG/DL (7-18); BUN/CREATININE RATIO 22.5 (10.0-20.0); CALCIUM 7.9 MG/DL (8.5-10.1); CHLORIDE 107 MMOL/L (99-107); CREATININE 0.71 MG/DL (0.40-0.90); GLUCOSE 106 MG/DL (70-104); MAGNESIUM 1.9 MG/DL (1.5-2.4); POTASSIUM 3.8 MMOL/L (3.5-5.1); SODIUM 138 MMOL/L (135-145); TOTAL CARBON DIOXIDE 23.6 MMOL/L (24-32); eCRCL 114 ML/MIN; eGFR > 90 ML/MIN
[2024-08-16] MEDS: furosemide 10 MG/1 ML 10ml inj IV ONE (12:37)
[2024-08-16] MEDS: ketamine 10mg/ml 20ml inj 100 MG in normal saline 100ml IV soln 90 ML IV SCH (14:18)
[2024-08-16 14:23] LABS: PREALBUMIN 20.3 MG/DL (19-36)
[2024-08-16] MEDS: acetaminophen 1,000mg/100ml IV 100 ML IV PRN (17:02)
[2024-08-16] MEDS: magnesium sulf-water 2g/50mL 50 ML IV ONE (17:25)
[2024-08-16] MEDS ORDERED: magnesium sulf-water 2g/50mL 50 ML IV PRN (17:25)
[2024-08-16] MEDS ORDERED: magnesium sulf-water 4G/100mL 100 ML IV PRN (17:25)
[2024-08-16 19:15] LABS: OXYGEN SATURATION (MIXED VEN) 75.6 % (60-80); PO2 MIXED VENOUS (TEMP COR) 43.5 mmHg (35-46)
[2024-08-16 19:55] LABS: ALBUMIN 2.3 G/DL (3.4-5.0); ANION GAP 10 (8-16); BLOOD UREA NITROGEN 14 MG/DL (7-18); BUN/CREATININE RATIO 16.7 (10.0-20.0); CALCIUM 7.4 MG/DL (8.5-10.1); CHLORIDE 107 MMOL/L (99-107); CREATINE KINASE MB 15.5 ng/ml (0.3-3.6); CREATININE 0.84 MG/DL (0.40-0.90); GLUCOSE 116 MG/DL (70-104); MAGNESIUM 2.3 MG/DL (1.5-2.4); POTASSIUM 3.4 MMOL/L (3.5-5.1); SODIUM 140 MMOL/L (135-145); TOTAL CARBON DIOXIDE 23.5 MMOL/L (24-32); eCRCL 96 ML/MIN; eGFR 80 ML/MIN
[2024-08-16 19:56] LABS: CKMB RELATIVE INDEX 0.9 RATIO (0-2.5); CREATINE KINASE 1732 U/L (26-192)
[2024-08-16] MEDS: fentaNYL 2,500 MCG in Normal Saline 250ml IV soln bag IV SCH (20:41)
[2024-08-16] MEDS: potassium Cl 40MEQ/270ML bag 270 ML IV PRN (22:56)
[2024-08-17] VITALS (37 sets, daily range): BP systolic 98–144; BP diastolic 49–101; PULSE 89–128; RESP 21–35; O2SAT 91–100
[2024-08-17] MEDS: ketamine 10mg/ml 20ml inj 100 MG in normal saline 100ml IV soln 90 ML IV SCH ×2 (01:31→03:54)
[2024-08-17 02:05] LABS: ABG BASE EXCESS -0.1 mmol/L (-2.0-3.0); ABG HCO3 23.9 mmol/L (21.0-28.0); ABG OXYGEN SATURATION 93.1 % (94.0-98.0); ABG PCO2 (T) 38.4 mmHg (32.0-45.0); ABG PH (T) 7.417 (7.350-7.450); ABG PO2 (T) 72.8 mmHg (83.0-108.0); ALLEN'S TEST Modified; FCOHb 0.3 % (0.5-1.5); FHHb 6.9 % (0.0-5.0); FMetHb 0.3 % (0.0-1.5); FO2Hb 92.5 % (94.0-98.0); MODE PRVC AC; PATIENT TEMPERATURE 38.4; PEEP 10 cm H2O; RESPIRATORY RATE 26 b/min; TIDAL VOLUME 350 mL; TOTAL HEMOGLOBIN 10.5 G/dl (12.0-16.0)
[2024-08-17 02:24] LABS: BASOPHILS % (AUTO) 0.3 % (0-1); EOSINOPHILS # (AUTO) 0.2 X10'3 (0-0.9); EOSINOPHILS % (AUTO) 1.1 % (0-6); HEMATOCRIT 28.8 % (35.0-45.0); HEMOGLOBIN 9.5 g/dl (12.0-16.0); LYMPHOCYTES # (AUTO) 1.5 X10'3 (1.1-4.8); MEAN CORPUSCULAR HEMOGLOBIN 28.9 PG (27.0-31.0); MEAN CORPUSCULAR HGB CONC 33.1 g/dL (33.0-36.5); MEAN CORPUSCULAR VOLUME 87.5 FL (78-98); MEAN PLATELET VOLUME 9.1 FL (7.4-10.4); MONOCYTES # (AUTO) 1.1 X10'3 (0-0.9); MONOCYTES % (AUTO) 7.1 % (2-12); NEUTROPHILS # (AUTO) 12.1 X10'3 (1.8-7.7); NEUTROPHILS % (AUTO) 81.5 % (42-75); PLATELET COUNT 185 X10'3 (140-440); RED BLOOD COUNT 3.29 X10'6 (4.20-5.60); RED CELL DISTRIBUTION WIDTH 15.9 % (11.5-14.5); WHITE BLOOD COUNT 14.8 X10'3 (4.5-11.0)
[2024-08-17 02:51] LABS: ALANINE AMINOTRANSFERASE 41 U/L (12-78); ALBUMIN 2.1 G/DL (3.4-5.0); ALBUMIN/GLOBULIN RATIO 0.6 (1.1-1.5); ALKALINE PHOSPHATASE 59 IU/L (46-116); ANION GAP 8 (8-16); ASPARTATE AMINO TRANSFERASE 65 U/L (10-37); BILIRUBIN,TOTAL 0.4 MG/DL (0.1-1.0); BLOOD UREA NITROGEN 11 MG/DL (7-18); BUN/CREATININE RATIO 14.7 (10.0-20.0); CALCIUM 7.6 MG/DL (8.5-10.1); CHLORIDE 110 MMOL/L (99-107); CREATINE KINASE MB 6.2 ng/ml (0.3-3.6); CREATININE 0.75 MG/DL (0.40-0.90); GLUCOSE 104 MG/DL (70-104); POTASSIUM 3.6 MMOL/L (3.5-5.1); SODIUM 142 MMOL/L (135-145); TOTAL CARBON DIOXIDE 24.3 MMOL/L (24-32); TOTAL PROTEIN 5.6 G/DL (6.4-8.2); eCRCL 108 ML/MIN; eGFR > 90 ML/MIN
[2024-08-17 03:00] LABS: CKMB RELATIVE INDEX 0.5 RATIO (0-2.5); CREATINE KINASE 1316 U/L (26-192)
[2024-08-17] MEDS ORDERED: KETAMINE IV SCH (06:00)
[2024-08-17] MEDS ORDERED: NORMAL SALINE IV SCH (06:00)
[2024-08-17 08:35] LABS: PHOSPHORUS 2.3 MG/DL (2.3-4.5)
[2024-08-17] MEDS: chlordiazePOXIDE 25mg capsule PO SCH (08:38)
[2024-08-17] MEDS: pantoprazole 40 MG vial IV SCH (08:38)
[2024-08-17] MEDS: VANCOMYCIN LEVEL IV ONE (09:30)
[2024-08-17 10:59] LABS: CKMB RELATIVE INDEX 0.3 RATIO (0-2.5); CREATINE KINASE MB 2.9 ng/ml (0.3-3.6)
[2024-08-17] MEDS: magnesium sulf-water 4G/100mL 100 ML IV PRN (11:08)
[2024-08-17] MEDS: nystatin 15 GM powder TP SCH (11:18)
[2024-08-17] MEDS: mineral oil/petrolatum ophthal oint EACHEYE SCH (13:27)
[2024-08-17] MEDS ORDERED: mineral oil/petrolatum ophthal oint EACHEYE SCH (14:00)
[2024-08-17] MEDS: midazolam 100mg in NS 100ml 100 ML IV SCH (18:06)
[2024-08-18] VITALS (36 sets, daily range): BP systolic 96–125; BP diastolic 48–75; PULSE 72–88; RESP 25–26; O2SAT 90–100
[2024-08-18 01:35] LABS: ABG BASE EXCESS -0.8 mmol/L (-2.0-3.0); ABG HCO3 23.2 mmol/L (21.0-28.0); ABG OXYGEN SATURATION 98.5 % (94.0-98.0); ABG PCO2 (T) 33.7 mmHg (32.0-45.0); ABG PH (T) 7.451 (7.350-7.450); ABG PO2 (T) 117.3 mmHg (83.0-108.0); ALLEN'S TEST Modified; FCOHb 0.3 % (0.5-1.5); FHHb 1.5 % (0.0-5.0); FMetHb 0.3 % (0.0-1.5); FO2Hb 97.9 % (94.0-98.0); MODE VENT- AC PRVC; PATIENT TEMPERATURE 35.8; PEEP 10 cm H2O; RESPIRATORY RATE 26 b/min; TIDAL VOLUME 350 mL; TOTAL HEMOGLOBIN 9.4 G/dl (12.0-16.0)
[2024-08-18 02:48] LABS: BASOPHILS # (AUTO) 0.1 X10'3 (0-0.2); BASOPHILS % (AUTO) 0.5 % (0-1); EOSINOPHILS # (AUTO) 0.9 X10'3 (0-0.9); EOSINOPHILS % (AUTO) 7.7 % (0-6); HEMATOCRIT 25.4 % (35.0-45.0); HEMOGLOBIN 8.1 g/dl (12.0-16.0); LYMPHOCYTES % (AUTO) 17.1 % (21-51); MEAN CORPUSCULAR HEMOGLOBIN 28.4 PG (27.0-31.0); MEAN CORPUSCULAR HGB CONC 31.7 g/dL (33.0-36.5); MEAN CORPUSCULAR VOLUME 89.4 FL (78-98); MEAN PLATELET VOLUME 9.7 FL (7.4-10.4); MONOCYTES # (AUTO) 0.6 X10'3 (0-0.9); MONOCYTES % (AUTO) 5.2 % (2-12); NEUTROPHILS % (AUTO) 69.5 % (42-75); PLATELET COUNT 162 X10'3 (140-440); RED BLOOD COUNT 2.84 X10'6 (4.20-5.60); RED CELL DISTRIBUTION WIDTH 16.2 % (11.5-14.5); WHITE BLOOD COUNT 11.5 X10'3 (4.5-11.0)
[2024-08-18 03:18] LABS: ALANINE AMINOTRANSFERASE 32 U/L (12-78); ALBUMIN 1.7 G/DL (3.4-5.0); ALBUMIN/GLOBULIN RATIO 0.5 (1.1-1.5); ALKALINE PHOSPHATASE 62 IU/L (46-116); ANION GAP 8 (8-16); ASPARTATE AMINO TRANSFERASE 47 U/L (10-37); BILIRUBIN,TOTAL 0.3 MG/DL (0.1-1.0); BLOOD UREA NITROGEN 7 MG/DL (7-18); BUN/CREATININE RATIO 17.1 (10.0-20.0); CALCIUM 7.4 MG/DL (8.5-10.1); CHLORIDE 112 MMOL/L (99-107); CREATINE KINASE 672 U/L (26-192); CREATININE 0.41 MG/DL (0.40-0.90); GLUCOSE 91 MG/DL (70-104); SODIUM 145 MMOL/L (135-145); TOTAL CARBON DIOXIDE 25.4 MMOL/L (24-32); TOTAL PROTEIN 5.2 G/DL (6.4-8.2); eCRCL 197 ML/MIN; eGFR > 90 ML/MIN
[2024-08-18 03:26] LABS: CKMB RELATIVE INDEX 0.5 RATIO (0-2.5); CREATINE KINASE MB 3.4 ng/ml (0.3-3.6); MAGNESIUM 2.2 MG/DL (1.5-2.4); POTASSIUM 2.8 MMOL/L (3.5-5.1)
[2024-08-18] MEDS: magnesium sulf-water 2g/50mL 50 ML IV PRN (03:29)
[2024-08-18] MEDS: furosemide 10 MG/1 ML 10ml inj IV ONE (07:42)
[2024-08-18] MEDS: POTASSIUM CHLORIDE 20 MEQ/15 ML oral solution PO ONE (07:55)
[2024-08-18] MEDS ORDERED: linezolid 600mg/300ml PREMIX 300 ML IV SCH (08:00)
[2024-08-18] MEDS: docusate sodium 100mg/10ml UD cup OGT SCH (11:10)
[2024-08-18] MEDS: methylPREDNISolone sod succ/PF 40mg inj. IV SCH (11:10)
[2024-08-19] VITALS (42 sets, daily range): BP systolic 112–139; BP diastolic 58–91; PULSE 69–106; RESP 25–32; O2SAT 88–99
[2024-08-19 03:34] LABS: BASOPHILS % (AUTO) 0.1 % (0-1); EOSINOPHILS % (AUTO) 0.3 % (0-6); HEMATOCRIT 26.5 % (35.0-45.0); HEMOGLOBIN 8.8 g/dl (12.0-16.0); LYMPHOCYTES # (AUTO) 0.9 X10'3 (1.1-4.8); LYMPHOCYTES % (AUTO) 11.9 % (21-51); MEAN CORPUSCULAR HEMOGLOBIN 29.5 PG (27.0-31.0); MEAN CORPUSCULAR HGB CONC 33.4 g/dL (33.0-36.5); MEAN CORPUSCULAR VOLUME 88.3 FL (78-98); MEAN PLATELET VOLUME 9.2 FL (7.4-10.4); MONOCYTES # (AUTO) 0.3 X10'3 (0-0.9); NEUTROPHILS # (AUTO) 6.3 X10'3 (1.8-7.7); NEUTROPHILS % (AUTO) 83.7 % (42-75); PLATELET COUNT 195 X10'3 (140-440); RED CELL DISTRIBUTION WIDTH 15.8 % (11.5-14.5); WHITE BLOOD COUNT 7.5 X10'3 (4.5-11.0)
[2024-08-19 03:47] LABS: ABG BASE EXCESS -0.2 mmol/L (-2.0-3.0); ABG HCO3 24.1 mmol/L (21.0-28.0); ABG OXYGEN SATURATION 92.4 % (94.0-98.0); ABG PCO2 (T) 37.5 mmHg (32.0-45.0); ABG PH (T) 7.426 (7.350-7.450); ABG PO2 (T) 60.9 mmHg (83.0-108.0); ALLEN'S TEST Modified; FCOHb 0.3 % (0.5-1.5); FHHb 7.6 % (0.0-5.0); FMetHb 0.3 % (0.0-1.5); FO2Hb 91.8 % (94.0-98.0); MODE PRVC; PATIENT TEMPERATURE 36.8; PEEP 10 cm H2O; RESPIRATORY RATE 26 b/min; TIDAL VOLUME 350 mL; TOTAL HEMOGLOBIN 9.5 G/dl (12.0-16.0)
[2024-08-19 03:48] LABS: ALANINE AMINOTRANSFERASE 34 U/L (12-78); ALBUMIN 1.9 G/DL (3.4-5.0); ALBUMIN/GLOBULIN RATIO 0.5 (1.1-1.5); ALKALINE PHOSPHATASE 68 IU/L (46-116); ANION GAP 6 (8-16); ASPARTATE AMINO TRANSFERASE 28 U/L (10-37); BILIRUBIN,TOTAL 0.2 MG/DL (0.1-1.0); BLOOD UREA NITROGEN 9 MG/DL (7-18); BUN/CREATININE RATIO 17.3 (10.0-20.0); CALCIUM 8.1 MG/DL (8.5-10.1); CHLORIDE 111 MMOL/L (99-107); CREATININE 0.52 MG/DL (0.40-0.90); GLUCOSE 125 MG/DL (70-104); PHOSPHORUS 3.9 MG/DL (2.3-4.5); POTASSIUM 4.4 MMOL/L (3.5-5.1); PREALBUMIN 13.3 MG/DL (19-36); SODIUM 143 MMOL/L (135-145); TOTAL CARBON DIOXIDE 26.2 MMOL/L (24-32); TOTAL PROTEIN 6.1 G/DL (6.4-8.2); eCRCL 155 ML/MIN; eGFR > 90 ML/MIN
[2024-08-19] MEDS: ketamine 10mg/ml 20ml inj 100 MG in normal saline 100ml IV soln 90 ML IV SCH (06:39)
[2024-08-19 09:28] LABS: TRIGLYCERIDES 155 MG/DL (20-135)
[2024-08-19] MEDS: KETAMINE HCL IV SCH (11:57)
[2024-08-19] MEDS: NS IV SCH (11:57)
[2024-08-19] MEDS: ipratropium/albuterol 3ml nebule NEB SCH (12:17)
[2024-08-19] MEDS: acetaminophen 1,000mg/100ml IV 100 ML IV ONE (13:00)
[2024-08-19] MEDS ORDERED: iohexol 350MG/ML 100ml bottle IV ONE (13:33)
[2024-08-19] MEDS: diphenhydrAMINE 50 mg/ml inj IV ONE (14:13)
[2024-08-19] MEDS: methylPREDNISolone sod succ 125mg/2ml vial IV ONE (14:13)
[2024-08-19] MEDS: chlordiazePOXIDE 25mg capsule PO SCH (19:48)
[2024-08-20] VITALS (48 sets, daily range): BP systolic 105–149; BP diastolic 53–96; PULSE 70–117; RESP 21–29; O2SAT 87–100
[2024-08-20 02:08] LABS: BASOPHILS % (AUTO) 0.1 % (0-1); EOSINOPHILS % (AUTO) 0.1 % (0-6); HEMATOCRIT 25.2 % (35.0-45.0); HEMOGLOBIN 8.2 g/dl (12.0-16.0); LYMPHOCYTES # (AUTO) 1.4 X10'3 (1.1-4.8); MEAN CORPUSCULAR HEMOGLOBIN 28.9 PG (27.0-31.0); MEAN CORPUSCULAR HGB CONC 32.5 g/dL (33.0-36.5); MEAN CORPUSCULAR VOLUME 88.9 FL (78-98); MEAN PLATELET VOLUME 8.7 FL (7.4-10.4); MONOCYTES # (AUTO) 0.7 X10'3 (0-0.9); MONOCYTES % (AUTO) 6.9 % (2-12); NEUTROPHILS # (AUTO) 7.8 X10'3 (1.8-7.7); NEUTROPHILS % (AUTO) 78.9 % (42-75); PLATELET COUNT 243 X10'3 (140-440); RED BLOOD COUNT 2.84 X10'6 (4.20-5.60); RED CELL DISTRIBUTION WIDTH 16.5 % (11.5-14.5); WHITE BLOOD COUNT 9.9 X10'3 (4.5-11.0)
[2024-08-20 02:27] LABS: ALANINE AMINOTRANSFERASE 29 U/L (12-78); ALBUMIN/GLOBULIN RATIO 0.5 (1.1-1.5); ALKALINE PHOSPHATASE 63 IU/L (46-116); ANION GAP 8 (8-16); ASPARTATE AMINO TRANSFERASE 17 U/L (10-37); BILIRUBIN,TOTAL 0.2 MG/DL (0.1-1.0); BLOOD UREA NITROGEN 14 MG/DL (7-18); BUN/CREATININE RATIO 25.5 (10.0-20.0); CALCIUM 8.4 MG/DL (8.5-10.1); CHLORIDE 111 MMOL/L (99-107); CREATININE 0.55 MG/DL (0.40-0.90); GLUCOSE 139 MG/DL (70-104); MAGNESIUM 2.2 MG/DL (1.5-2.4); PHOSPHORUS 4.1 MG/DL (2.3-4.5); POTASSIUM 4.1 MMOL/L (3.5-5.1); SODIUM 145 MMOL/L (135-145); TOTAL CARBON DIOXIDE 25.6 MMOL/L (24-32); TOTAL PROTEIN 5.9 G/DL (6.4-8.2); eCRCL 147 ML/MIN; eGFR > 90 ML/MIN
[2024-08-20 03:49] LABS: ABG BASE EXCESS -0.5 mmol/L (-2.0-3.0); ABG HCO3 24.2 mmol/L (21.0-28.0); ABG OXYGEN SATURATION 88.2 % (94.0-98.0); ABG PCO2 (T) 39.9 mmHg (32.0-45.0); ABG PO2 (T) 56.2 mmHg (83.0-108.0); ALLEN'S TEST Modified; FCOHb 0.3 % (0.5-1.5); FHHb 11.7 % (0.0-5.0); FMetHb 0.3 % (0.0-1.5); FO2Hb 87.7 % (94.0-98.0); MODE VENT - PRVC; PATIENT TEMPERATURE 36.9; PEEP 10 cm H2O; RESPIRATORY RATE 26 b/min; TIDAL VOLUME 350 mL; TOTAL HEMOGLOBIN 9.2 G/dl (12.0-16.0)
[2024-08-20] MEDS: furosemide 10 MG/1 ML 10ml inj IV ONE (07:20)
[2024-08-20 10:40] LABS: ABG HCO3 25.9 mmol/L (21.0-28.0); ABG OXYGEN SATURATION 95.5 % (94.0-98.0); ABG PCO2 (T) 38.2 mmHg (32.0-45.0); ABG PO2 (T) 79.2 mmHg (83.0-108.0); ALLEN'S TEST POSITIVE; FCOHb 0.3 % (0.5-1.5); FHHb 4.5 % (0.0-5.0); FMetHb 0.3 % (0.0-1.5); FO2Hb 94.9 % (94.0-98.0); MODE VENT - PRVC; PATIENT TEMPERATURE 37.3; PEEP 10 cm H2O; RESPIRATORY RATE 26 b/min; TIDAL VOLUME 350 mL; TOTAL HEMOGLOBIN 9.8 G/dl (12.0-16.0)
[2024-08-20] MEDS ORDERED: polyethylene glycol 3350 17gm powd pack OGT SCH (10:48)
[2024-08-20] MEDS ORDERED: magnesium hydroxide 30ml (MOM) UD suspension OGT SCH (10:48)
[2024-08-20] MEDS: polyethylene glycol 3350 17gm powd pack OGT PRN (13:13)
[2024-08-20] MEDS: acetaminophen 325mg tablet PO PRN (13:14)
[2024-08-20] MEDS: furosemide 40mg/4ml inj IV ONE (22:08)
[2024-08-21] VITALS (46 sets, daily range): BP systolic 124–159; BP diastolic 71–98; PULSE 72–112; RESP 9–31; O2SAT 89–100
[2024-08-21 01:39] LABS: BASOPHILS % (AUTO) 0.1 % (0-1); EOSINOPHILS % (AUTO) 0.1 % (0-6); HEMATOCRIT 26.4 % (35.0-45.0); HEMOGLOBIN 8.6 g/dl (12.0-16.0); LYMPHOCYTES % (AUTO) 16.7 % (21-51); MEAN CORPUSCULAR HEMOGLOBIN 28.5 PG (27.0-31.0); MEAN CORPUSCULAR HGB CONC 32.6 g/dL (33.0-36.5); MEAN CORPUSCULAR VOLUME 87.5 FL (78-98); MEAN PLATELET VOLUME 8.2 FL (7.4-10.4); MONOCYTES # (AUTO) 1.3 X10'3 (0-0.9); NEUTROPHILS # (AUTO) 8.7 X10'3 (1.8-7.7); NEUTROPHILS % (AUTO) 72.1 % (42-75); PLATELET COUNT 277 X10'3 (140-440); RED BLOOD COUNT 3.02 X10'6 (4.20-5.60); RED CELL DISTRIBUTION WIDTH 16.7 % (11.5-14.5); WHITE BLOOD COUNT 12.1 X10'3 (4.5-11.0)
[2024-08-21 01:56] LABS: ALANINE AMINOTRANSFERASE 37 U/L (12-78); ALBUMIN 2.5 G/DL (3.4-5.0); ALBUMIN/GLOBULIN RATIO 0.6 (1.1-1.5); ALKALINE PHOSPHATASE 61 IU/L (46-116); ANION GAP 8 (8-16); ASPARTATE AMINO TRANSFERASE 26 U/L (10-37); BILIRUBIN,TOTAL 0.3 MG/DL (0.1-1.0); BLOOD UREA NITROGEN 18 MG/DL (7-18); BUN/CREATININE RATIO 26.1 (10.0-20.0); CALCIUM 8.8 MG/DL (8.5-10.1); CHLORIDE 106 MMOL/L (99-107); CREATININE 0.69 MG/DL (0.40-0.90); GLUCOSE 113 MG/DL (70-104); MAGNESIUM 1.7 MG/DL (1.5-2.4); PHOSPHORUS 5.2 MG/DL (2.3-4.5); POTASSIUM 3.7 MMOL/L (3.5-5.1); SODIUM 144 MMOL/L (135-145); TOTAL CARBON DIOXIDE 29.8 MMOL/L (24-32); TOTAL PROTEIN 6.7 G/DL (6.4-8.2); eCRCL 117 ML/MIN; eGFR > 90 ML/MIN
[2024-08-21 02:44] LABS: ANISOCYTOSIS 1+; PLATELET ESTIMATE NORMAL; STOMATOCYTES 2+; TOTAL CELLS COUNTED 100
[2024-08-21 03:38] LABS: ABG BASE EXCESS 5.1 mmol/L (-2.0-3.0); ABG HCO3 28.5 mmol/L (21.0-28.0); ABG OXYGEN SATURATION 91.4 % (94.0-98.0); ABG PCO2 (T) 39.1 mmHg (32.0-45.0); ABG PH (T) 7.486 (7.350-7.450); ABG PO2 (T) 65.1 mmHg (83.0-108.0); ALLEN'S TEST Modified; FCOHb 0.3 % (0.5-1.5); FHHb 8.5 % (0.0-5.0); FMetHb 0.3 % (0.0-1.5); FO2Hb 90.9 % (94.0-98.0); MODE VENT - PRVC; PATIENT TEMPERATURE 38.2; PEEP 10 cm H2O; RESPIRATORY RATE 26 b/min; TIDAL VOLUME 350 mL; TOTAL HEMOGLOBIN 8.6 G/dl (12.0-16.0)
[2024-08-21] MEDS: furosemide 10 MG/1 ML 10ml inj IV ONE (08:32)
[2024-08-21] MEDS: magnesium hydroxide 30ml (MOM) UD suspension OGT PRN (08:33)
[2024-08-21] MEDS: dexmedetomidin/NS 400mcg/100ml 100 ML IV PRN (13:22)
[2024-08-21] MEDS: mineral oil/petrolatum ophthal oint EACHEYE SCH (13:33)
[2024-08-21 16:27] LABS: MAGNESIUM 2.3 MG/DL (1.5-2.4); PHOSPHORUS 5.3 MG/DL (2.3-4.5); POTASSIUM 3.7 MMOL/L (3.5-5.1)
[2024-08-21] MEDS: ondansetron/PF 4mg/2ml inj IV PRN (17:58)
[2024-08-21] MEDS: acetylcysteine 200 MG/ml 4ml vial INH SCH (19:33)
[2024-08-22] VITALS (32 sets, daily range): BP systolic 111–156; BP diastolic 70–97; PULSE 81–114; RESP 8–21; TEMP 98–98.8; O2SAT 88–98
[2024-08-22 05:38] LABS: BASOPHILS % (AUTO) 0.1 % (0-1); EOSINOPHILS % (AUTO) 0.1 % (0-6); HEMATOCRIT 29.2 % (35.0-45.0); HEMOGLOBIN 9.5 g/dl (12.0-16.0); LYMPHOCYTES # (AUTO) 2.1 X10'3 (1.1-4.8); MEAN CORPUSCULAR HEMOGLOBIN 28.6 PG (27.0-31.0); MEAN CORPUSCULAR HGB CONC 32.5 g/dL (33.0-36.5); MEAN PLATELET VOLUME 8.1 FL (7.4-10.4); MONOCYTES # (AUTO) 1.4 X10'3 (0-0.9); MONOCYTES % (AUTO) 10.4 % (2-12); NEUTROPHILS # (AUTO) 10.2 X10'3 (1.8-7.7); NEUTROPHILS % (AUTO) 74.4 % (42-75); PLATELET COUNT 349 X10'3 (140-440); RED BLOOD COUNT 3.32 X10'6 (4.20-5.60); RED CELL DISTRIBUTION WIDTH 16.3 % (11.5-14.5); WHITE BLOOD COUNT 13.8 X10'3 (4.5-11.0)
[2024-08-22 06:00] LABS: ALANINE AMINOTRANSFERASE 55 U/L (12-78); ALBUMIN 2.9 G/DL (3.4-5.0); ALBUMIN/GLOBULIN RATIO 0.7 (1.1-1.5); ALKALINE PHOSPHATASE 65 IU/L (46-116); ANION GAP 6 (8-16); ASPARTATE AMINO TRANSFERASE 40 U/L (10-37); BILIRUBIN,TOTAL 0.6 MG/DL (0.1-1.0); BLOOD UREA NITROGEN 17 MG/DL (7-18); BUN/CREATININE RATIO 24.6 (10.0-20.0); CALCIUM 9.3 MG/DL (8.5-10.1); CHLORIDE 102 MMOL/L (99-107); CREATININE 0.69 MG/DL (0.40-0.90); GLUCOSE 105 MG/DL (70-104); MAGNESIUM 2.2 MG/DL (1.5-2.4); PHOSPHORUS 5.3 MG/DL (2.3-4.5); POTASSIUM 3.8 MMOL/L (3.5-5.1); SODIUM 140 MMOL/L (135-145); TOTAL CARBON DIOXIDE 31.8 MMOL/L (24-32); TOTAL PROTEIN 7.1 G/DL (6.4-8.2); eCRCL 117 ML/MIN; eGFR > 90 ML/MIN
[2024-08-22 07:17] LABS: PRO BRAIN NATRIURETIC PEPTIDE 13263 PG/ML (0-125)
[2024-08-22] MEDS: furosemide 10 MG/1 ML 10ml inj IV ONE (11:46)
[2024-08-22] MEDS: clindamycin-Cleocin 900mg/D5W 50 ML IV SCH (15:44)
[2024-08-22] MEDS: metoprolol succinate 25mg (24-HOUR) SR. Tablet PO SCH (15:44)
[2024-08-22] MEDS: HYDROcodone/acetaminophen 5mg/325mg tablet PO PRN (18:27)
[2024-08-22] MEDS: furosemide 40mg/4ml inj IV SCH (22:17)
[2024-08-23] VITALS (14 sets, daily range): BP systolic 124–139; BP diastolic 71–88; PULSE 91–115; RESP 15–20; TEMP 97.6–99.7; O2SAT 90–96
[2024-08-23] MEDS: morphine 2 MG/ML inj. syringe IV PRN (01:56)
[2024-08-23 06:21] LABS: BASOPHILS % (AUTO) 0 % (0-1); EOSINOPHILS % (AUTO) 0.1 % (0-6); HEMATOCRIT 34.5 % (35.0-45.0); HEMOGLOBIN 11.4 g/dl (12.0-16.0); LYMPHOCYTES # (AUTO) 2.5 X10'3 (1.1-4.8); LYMPHOCYTES % (AUTO) 16.5 % (21-51); MEAN CORPUSCULAR HEMOGLOBIN 28.5 PG (27.0-31.0); MEAN CORPUSCULAR HGB CONC 33.1 g/dL (33.0-36.5); MEAN CORPUSCULAR VOLUME 86.3 FL (78-98); MEAN PLATELET VOLUME 8.1 FL (7.4-10.4); MONOCYTES # (AUTO) 1.6 X10'3 (0-0.9); MONOCYTES % (AUTO) 10.8 % (2-12); NEUTROPHILS # (AUTO) 11.1 X10'3 (1.8-7.7); NEUTROPHILS % (AUTO) 72.6 % (42-75); PLATELET COUNT 456 X10'3 (140-440); RED CELL DISTRIBUTION WIDTH 16.3 % (11.5-14.5); WHITE BLOOD COUNT 15.2 X10'3 (4.5-11.0)
[2024-08-23 06:31] LABS: ALANINE AMINOTRANSFERASE 162 U/L (12-78); ALBUMIN 3.4 G/DL (3.4-5.0); ALBUMIN/GLOBULIN RATIO 0.7 (1.1-1.5); ALKALINE PHOSPHATASE 82 IU/L (46-116); ANION GAP 13 (8-16); ASPARTATE AMINO TRANSFERASE 93 U/L (10-37); BILIRUBIN,TOTAL 0.9 MG/DL (0.1-1.0); BLOOD UREA NITROGEN 24 MG/DL (7-18); BUN/CREATININE RATIO 29.6 (10.0-20.0); CALCIUM 9.9 MG/DL (8.5-10.1); CHLORIDE 99 MMOL/L (99-107); CHOLESTEROL 334 MG/DL (0-200); CREATININE 0.81 MG/DL (0.40-0.90); GLUCOSE 121 MG/DL (70-104); HDL CHOLESTEROL 42 MG/DL (35-60); LDL CHOLESTEROL 242 MG/DL (50-100); MAGNESIUM 2.3 MG/DL (1.5-2.4); PHOSPHORUS 5.7 MG/DL (2.3-4.5); POTASSIUM 3.5 MMOL/L (3.5-5.1); SODIUM 140 MMOL/L (135-145); TOTAL CARBON DIOXIDE 28.4 MMOL/L (24-32); TOTAL PROTEIN 8.3 G/DL (6.4-8.2); TRIGLYCERIDES 113 MG/DL (20-135); eCRCL 100 ML/MIN; eGFR 84 ML/MIN
[2024-08-23] MEDS: aspirin 81mg, enteric-coated 1 TAB TABLET.DR PO SCH (07:55)
[2024-08-23] MEDS ORDERED: acetaminophen 325mg tablet PO PRN (08:55)
[2024-08-23 10:54] LABS: ANISOCYTOSIS 1+; LARGE PLATELETS FEW; PLATELET ESTIMATE INCREASED
[2024-08-23] MEDS: hydrOXYzine 25 MG tablet PO PRN (12:32)
[2024-08-23] MEDS: lactose-reduced food (Ensure Enlive) - 237ml bottle PO SCH (18:00)
[2024-08-24] VITALS (19 sets, daily range): BP systolic 130–147; BP diastolic 90–99; PULSE 102–124; RESP 16–26; TEMP 97.5–98.3; O2SAT 88–93
[2024-08-24 07:01] LABS: LYMPHOCYTES # (AUTO) 3.1 X10'3 (1.1-4.8); LYMPHOCYTES % (AUTO) 18.1 % (21-51); MEAN PLATELET VOLUME 8.5 FL (7.4-10.4)
[2024-08-24 07:04] LABS: BASOPHILS % (AUTO) 0.1 % (0-1); EOSINOPHILS % (AUTO) 0.2 % (0-6); HEMATOCRIT 39.6 % (35.0-45.0); HEMOGLOBIN 13.2 g/dl (12.0-16.0); MEAN CORPUSCULAR HEMOGLOBIN 29.1 PG (27.0-31.0); MEAN CORPUSCULAR HGB CONC 33.3 g/dL (33.0-36.5); MEAN CORPUSCULAR VOLUME 87.5 FL (78-98); MONOCYTES # (AUTO) 1.7 X10'3 (0-0.9); MONOCYTES % (AUTO) 9.8 % (2-12); NEUTROPHILS # (AUTO) 12.2 X10'3 (1.8-7.7); NEUTROPHILS % (AUTO) 71.8 % (42-75); PLATELET COUNT 639 X10'3 (140-440); RED BLOOD COUNT 4.53 X10'6 (4.20-5.60); RED CELL DISTRIBUTION WIDTH 16.6 % (11.5-14.5)
[2024-08-24 07:27] LABS: ALANINE AMINOTRANSFERASE 163 U/L (12-78); ALBUMIN 3.6 G/DL (3.4-5.0); ALBUMIN/GLOBULIN RATIO 0.7 (1.1-1.5); ALKALINE PHOSPHATASE 94 IU/L (46-116); ANION GAP 14 (8-16); ASPARTATE AMINO TRANSFERASE 57 U/L (10-37); BILIRUBIN,TOTAL 0.8 MG/DL (0.1-1.0); BLOOD UREA NITROGEN 38 MG/DL (7-18); BUN/CREATININE RATIO 44.7 (10.0-20.0); CALCIUM 9.8 MG/DL (8.5-10.1); CHLORIDE 99 MMOL/L (99-107); CREATININE 0.85 MG/DL (0.40-0.90); GLUCOSE 122 MG/DL (70-104); MAGNESIUM 2.8 MG/DL (1.5-2.4); PHOSPHORUS 5.2 MG/DL (2.3-4.5); POTASSIUM 3.4 MMOL/L (3.5-5.1); SODIUM 138 MMOL/L (135-145); TOTAL CARBON DIOXIDE 25.1 MMOL/L (24-32); TOTAL PROTEIN 8.9 G/DL (6.4-8.2); eCRCL 95 ML/MIN; eGFR 79 ML/MIN
[2024-08-24 08:39] LABS: ANISOCYTOSIS 1+; PLATELET ESTIMATE INCREASED; TOTAL CELLS COUNTED 100
[2024-08-24] MEDS ORDERED: potassium Cl 20 mEq SR tablet PO PRN (10:00)
[2024-08-24] MEDS ORDERED: AMOX-580 PO (12:36)
[2024-08-24] MEDS ORDERED: PRED10TA23 PO (12:36)
[2024-08-24] MEDS ORDERED: FURO-150 PO (12:36)
[2024-08-24] MEDS ORDERED: ASPI-1071 PO (12:36)
[2024-08-24] MEDS ORDERED: METO-395 PO (12:36)
[2024-08-24] MEDS: potassium Cl 20 mEq SR tablet PO PRN (20:34)
[2024-08-25 06:00] VITALS: BP 117/98; PULSE 109; RESP 18; TEMP 98.1; O2SAT 91
[2024-08-25 06:41] LABS: HEMOGLOBIN 14.3 g/dl (12.0-16.0); MEAN PLATELET VOLUME 8.7 FL (7.4-10.4); NEUTROPHILS # (AUTO) 15.6 X10'3 (1.8-7.7)
[2024-08-25 06:45] LABS: BASOPHILS % (AUTO) 0.1 % (0-1); EOSINOPHILS % (AUTO) 0.1 % (0-6); HEMATOCRIT 43.3 % (35.0-45.0); LYMPHOCYTES # (AUTO) 2.8 X10'3 (1.1-4.8); MEAN CORPUSCULAR HGB CONC 32.9 g/dL (33.0-36.5); MEAN CORPUSCULAR VOLUME 88.1 FL (78-98); MONOCYTES # (AUTO) 1.5 X10'3 (0-0.9); MONOCYTES % (AUTO) 7.6 % (2-12); NEUTROPHILS % (AUTO) 78.2 % (42-75); PLATELET COUNT 642 X10'3 (140-440); RED BLOOD COUNT 4.92 X10'6 (4.20-5.60); RED CELL DISTRIBUTION WIDTH 16.9 % (11.5-14.5)
[2024-08-25 07:02] LABS: ALANINE AMINOTRANSFERASE 154 U/L (12-78); ALBUMIN 3.5 G/DL (3.4-5.0); ALBUMIN/GLOBULIN RATIO 0.7 (1.1-1.5); ALKALINE PHOSPHATASE 106 IU/L (46-116); ANION GAP 15 (8-16); ASPARTATE AMINO TRANSFERASE 66 U/L (10-37); BILIRUBIN,TOTAL 0.9 MG/DL (0.1-1.0); BLOOD UREA NITROGEN 43 MG/DL (7-18); BUN/CREATININE RATIO 51.2 (10.0-20.0); CALCIUM 9.5 MG/DL (8.5-10.1); CHLORIDE 98 MMOL/L (99-107); CREATININE 0.84 MG/DL (0.40-0.90); GLUCOSE 127 MG/DL (70-104); MAGNESIUM 2.6 MG/DL (1.5-2.4); PHOSPHORUS 4.2 MG/DL (2.3-4.5); POTASSIUM 3.7 MMOL/L (3.5-5.1); SODIUM 137 MMOL/L (135-145); TOTAL CARBON DIOXIDE 24.5 MMOL/L (24-32); TOTAL PROTEIN 8.8 G/DL (6.4-8.2); eCRCL 96 ML/MIN; eGFR 80 ML/MIN
[2024-08-25 08:00] VITALS: BP 136/99; PULSE 106
[2024-08-25 08:02] VITALS: PULSE 103; RESP 16; O2SAT 93
[2024-08-25 10:00] VITALS: BP 136/99; PULSE 106; RESP 16; TEMP 98.4
[2024-08-25 10:25] VITALS: BP 170/90; PULSE 119
[2024-08-25 10:26] VITALS: BP 153/79; PULSE 125
== END 2024-08-25 15:05 | disposition home health service (06) | DRG 917 ==
LOC: ER 17:14 → ED HOLD 20:10 → EDBEDREQ 08-15 18:55 → ED HOLD 08-16 02:51 → CICU 2S 08-16 16:25 → ORTHO 4S 08-22 17:20
PROVIDERS: ADMIT Internal Medicine Critical Care Medicine; ATTEND Internal Medicine Critical Care Medicine
PROC: 0BH17EZ Insertion of Endotracheal Airway into Trachea, Via Natural or Artificial Opening (ICD-10-PCS; 2024-08-16)
PROC: 5A1955Z Respiratory Ventilation, Greater than 96 Consecutive Hours (ICD-10-PCS; 2024-08-16)
PROC: B32T1ZZ Computerized Tomography (CT Scan) of Left Pulmonary Artery using Low Osmolar Contrast (ICD-10-PCS; principal; 2024-08-19)
PROC: B3201ZZ Computerized Tomography (CT Scan) of Thoracic Aorta using Low Osmolar Contrast (ICD-10-PCS; 2024-08-19)
PROC: B32S1ZZ Computerized Tomography (CT Scan) of Right Pulmonary Artery using Low Osmolar Contrast (ICD-10-PCS; 2024-08-19)
PROC: 5A1935Z Respiratory Ventilation, Less than 24 Consecutive Hours (ICD-10-PCS; 2024-08-24)
DX: T40.411A Poisoning by fentanyl or fentanyl analogs, accidental (unintentional), initial encounter (principal); A41.9 Sepsis, unspecified organism; I49.01 Ventricular fibrillation; J18.9 Pneumonia, unspecified organism; J80 Acute respiratory distress syndrome; J69.0 Pneumonitis due to inhalation of food and vomit; I46.9 Cardiac arrest, cause unspecified; I47.21 Torsades de pointes; E87.20 Acidosis, unspecified; K92.2 Gastrointestinal hemorrhage, unspecified; Z20.822 Contact with and (suspected) exposure to COVID-19; D64.9 Anemia, unspecified; F15.10 Other stimulant abuse, uncomplicated; R73.9 Hyperglycemia, unspecified; Y92.89 Other specified places as the place of occurrence of the external cause; Z88.2 Allergy status to sulfonamides
CPT/HCPCS: 36415; 36600; 70450; 71045; 71275; 80048; 80053; 80061; 80202; 80305; 80320; 81001; 81025; 82140; 82550; 82553; 82803; 82810; 82948; 83605; 83735; 83880; 84100; 84132; 84134; 84145; 84443; 84478; 84484; 85007; 85008; 85018; 85025; 85610; 85730; 87040; 87070; 87077; 87081; 87088; 87186; 87502; 87503; 87811; 92508; 92616; 93005; 93306; 93970; 94002; 94003; 94640; 94664; 94760; 94799; 97110; 97116; 97161; 97530; 97535; 99291; 99292; A4615; A5200; A6250; A6258; A6446; A6449; A7015; C1752; C1758; G0378; J0131; J0282; J1200; J1650; J1815; J1940; J2270; J2405; J2470; J2543; J2704; J2919; J3010; J3370; J3475; J3480; J3490; J7030; J7040; J7042; J7050; J7120; Q0177; Q9967